=== PATIENT | female | born 1985 | race Caucasian/White ===

== ENCOUNTER 2017-06-24 05:14 | Inpatient (IN) | payer OTHER ==
[~2017-06-24] VITALS: Ht 157.5 cm; Wt 63.0 kg
[~2017-06-24 05:14] MED LIST: KETOROLAC60 MG/2 M1 PO; TYLENOL-CODEINE1 TAB PO
[2017-06-24] MEDS ORDERED: PRENATAL 19 TA1 EACH PO (05:52)
[2017-06-26] MEDS ORDERED: DOCUSATE SODIU100 MG PO (07:48)
== END 2017-06-26 12:07 | DRG 775 ==
LOC: LDR 05:14 → OB/GYN 05:14
PROC: 0DQR0ZZ Repair Anal Sphincter, Open Approach (ICD-10-PCS; principal; 2017-06-24)
PROC: 10E0XZZ Delivery of Products of Conception, External Approach (ICD-10-PCS; 2017-06-24)
PROC: 4A1HXCZ Monitoring of Products of Conception, Cardiac Rate, External Approach (ICD-10-PCS; 2017-06-24)
DX: O70.20 Third degree perineal laceration during delivery, unspecified (principal); Z3A.39 39 weeks gestation of pregnancy; Z37.0 Single live birth